=== PATIENT | male | born 1950 | race Caucasian/White ===

== ENCOUNTER 2017-04-20 15:33 | Observation (INO) | payer OTHER, MEDICARE ==
--- NOTE | ~2017-04-20 | HEMODYNAMI ---
PATIENT:MIGUEL HUBBARD MEDICAL RECORD: [id number] : 46 LOCATION:[place] [address] ADMISSION DATE: 04/20/17 Generatedon:04/21/201712:26 Patient name: MIGUEL HUBBARD Patient #: [id number] SSN: : 1950 Date of study: 04/21/2017 Page: Of Hemodynamic Procedure Report Patient Data Patient Demographics Procedure consent was obtained First Name: MIGUEL Gender: Male Last Name: HAYDEE : 1950 [facility] Initial: F Age: 67 year(s) Patient #: [id number] Race: Unknown Additional ID: [id number] Contact details Address: [address] State: [place] City: [place] Zip code: [address] Past Medical History Allergies: No known allergies Admission Admission Data Admission Date: 04/20/2017 Admission Time: 18:11 Room #: [facility]6 Weight (lbs.): 212.24 Weight (kg.): 96.27 Medications upon Admission Medications Dosage Times Administered Last Remarks per Delivery Day Date and Time Clopidogrel 600 mg Yes 04/21/2017 9:18 Procedure Procedure Types Cath Procedure Diagnostic Procedure LHC [facility] w/Coronaries FFR/IVUS Intra-Coronary IVUS Initial Intra-Coronary IVUS Additional PCI Procedure Coronary Stent Coronary Stent Initial x2 Miscellaneous Procedures Moderate Sedation up to 30 minutes Procedure Description Procedure Date Procedure Date: 04/21/2017 Procedure Start Time: 12:07 Procedure End Time: 12:25 Procedure Staff Name Function Octavio Fisher MD Performing Physician Juani Stringer RT Monitor Caro Ayala RT Scrub Harley Steven RN Nurse Procedure Data Cath Procedure Fluoroscopy Diagnostic fluoroscopy Total fluoroscopy Time: 5.3 time: 5.3 min min Diagnostic fluoroscopy Total fluoroscopy dose: 915 dose: 915 mGy mGy Contrast Material Contrast Material Type Amount (ml) Isovue 300 107 Entry Location Entry Primary Successful Side Size Upsize Upsize Entry Closure Succes sful Closure Location (Fr) 1 (Fr) 2 (Fr) Remarks Device Remarks Femoral Right 5 Fr 6 Fr Exoseal artery Short Estimated blood loss: 10 ml Diagnostic catheters Device Type Used For End Catheter Placement MULTIPACK Pigtail 5 Fr LV Angiography catheter MULTIPACK JL 4.0 5Fr Left Coronary catheter Angiography MULTIPACK 3DRC 5Fr Right Coronary catheter Angiography Procedure Complications No complications Procedure Medications Medication Administration Route Dosage 0.9% NaCl I.V. 100 ml/hr Oxygen NC 2 l/min Heparin Flush Bag added to field 2 bags (1000units/500ml NS) Lidocaine 2% added to field 20 Versed I.V. 2 mg Fentanyl I.V. 50 mcg Fentanyl I.V. 50 mcg Heparin Bolus I.V. 4000 units Hemodynamics Rest Heart Rate: 57 (bpm) Snapshots Pre Cath Intra NCS Post Cath Vital Signs Time Heart Resp SPO2 etCO2 NIBP (mmHg) Rhythm Pain Sedation Rate (ipm) (%) (mmHg) Status Level (bpm) 11:54:20 61 14 99 31 151/88(133) NSR 0 (11) 10(A) , No pain 11:59:02 57 15 95 0 129/79(99) NSR 0 (11) 10(A) , No pain 12:03:47 56 16 96 23.4 131/75(111) NSR 0 (11) 10(A) , No pain 12:08:30 60 17 96 37.1 129/74(97) NSR 0 (11) 10(A) , No pain 12:13:12 56 16 95 0 112/70(90) NSR 0 (11) 9(A) , No pain 12:17:53 58 14 93 30.2 117/70(90) NSR 0 (11) 9(A) , No pain 12:22:36 54 14 96 37 114/65(86) NSR 0 (11) 9(A) , No pain Medications Time Medication Route Dose Verified Delivered Reason Notes Effectiveness by by 11:53:41 0.9% NaCl I.V. 100 Harley Harley Per physician ml/hr Maurizio Steven RN RN 11:53:55 Oxygen NC 2 Harley Harley Per physician l/min Maurizio Steven RN RN 11:54:08 Heparin Flush added 2 Harley Harley used for Bag to bags Maurizio Steven procedure (1000units/500ml field RN RN NS) 11:54:25 Lidocaine 2% added 20ml Harley Harely for local to vial Maurizio Steven anesthetic field RN RN 12:05:27 Versed I.V. 2 mg Harley Harley for sedation Maurizio Steven RN RN 12:06:02 Fentanyl I.V. 50 Harley Harley for sedation mcg Maurizio Steven RN RN 12:07:20 Fentanyl I.V. 50 Harley Harley for sedation mcg Maurizio Steven RN RN 12:13:20 Heparin Bolus I.V. 4000 Harley Harley for units Maurizio Steven anticoagulation RN glass blowing instructor Log Time Note 11:28:04 Time tracking: Regular hours 11:28:08 Plan of Care:Hemodynamics will remain stable., Cardiac rhythm will remain stable., Comfort level will be maintained., Respiratory function will remain adequate., Patient/ family verbilizes understanding of procedure., Procedure tolerated without complication., Recovers from procedure without complications.. 11:31:05 Patient Weight : 212.24 lbs 11:46:01 Patient received from Med II to CCL 1 Alert and oriented. Tansferred to table in Supine position. 11:46:03 Warm blankets applied, and steven hugger turned on for patient comfort. 11:46:03 Correct patient and procedure confirmed by team. 11:46:04 Signed procedure consent form obtained from patient. 11:46:06 ECG and BP/O2 sat monitors applied to patient. 11:53:17 Vital chart was started 11:53:26 Rhythm: sinus bradycardia 11:53:27 Full Disclosure recording started 11:53:35 H&P Date Dictated: 04/21/2017 Within 30 days and on chart.. 11:53:37 Pre-procedure instructions explained to patient. 11:53:37 Pre-op teaching completed and patient verbalized understanding. 11:53:38 Family in waiting room. 11:53:40 Patient NPO since Midnight. 11:53:41 0.9% NaCl 100 ml/hr I.V. was administered by Harley Steven RN; Per physician; 11:53:45 Patient allergic to No known allergies 11:53:47 Is the patient allergic to Iodine/contrast media? No. 11:53:49 Is patient on blood thinner?Yes 11:53:52 ACC The patient was administered the following blood thiners within the last 24 hours: ACCPlavix 11:53:53 Patient diabetic? Yes. 11:53:55 Oxygen 2 l/min NC was administered by Harley Steven RN; Per physician; 11:53:55 If diabetic: On Metformin? No 11:53:58 Previous problem with sedation/anesthesia? No ? 11:53:59 Snore? Yes 11:54:00 Sleep apnea? Yes 11:54:01 Deviated septum? No 11:54:02 Opens mouth fully? Yes 11:54:02 Sticks out tongue? Yes 11:54:04 Airway obstruction? No ? 11:54:06 Dentures? No ? 11:54:08 Heparin Flush Bag (1000units/500ml NS) 2 bags added to field was administered by Harley Steven RN; used for procedure; 11:54:08 Pre procedure: right dorsailis pedis pulse 2+ Normal; easily identifiable; not easily obliterated 11:54:10 Modified Thierry's test Ulnar > 7 seconds. 11:54:12 Patient pain scale 0/10 ?. 11:54:16 IV patent on arrival in right forearm with 0.9% NaCl at [facility]. 11:54:18 Lab results completed and on chart. 11:54:21 Right groin area was prepped with chlora-prep and draped in sterile fashion 11:54:22 Alarms reviewed by R. N. 11:54:23 Sharps counted by scrub and verified by R.N. 11:54:25 Lidocaine 2% 20ml vial added to field was administered by Harley Steven RN; for local anesthetic; 11:54:25 Use device set Femoral Dx 11:54:26 ACIST Syringe (29758) opened to sterile field. 11:54:26 Bag Decanter (2002S) opened to sterile field. 11:54:27 Medline Cath Pack ([id number]) opened to sterile field. 11:54:27 SHEATH 5FR Jackson (EKA053) opened to sterile field. 11:54:28 DIAGNOSTIC WIRE .035 260cm J wire (177959) opened to sterile field. 11:54:29 ACIST Hand Control (01390) opened to sterile field. 11:54:29 ACIST Manifold (32052) opened to sterile field. 11:54:30 DIAGNOSTIC Multipack 5Fr catheter set (LT4212) opened to sterile field. 11:54:31 Tegaderm 4 x 4 (1626W) opened to sterile field. 11:54:31 PERCUTANEOUS ENTRY 19GA needle opened to sterile field. 11:56:05 Baseline sample Acquired. 11:56:41 Physician paged 11:58:38 Zero performed for pressure channel P1 12:04:48 Final Timeout: patient, procedure, and site verified with staff and physician. All members of the team are in agreement. 12:04:50 Right groin site verified by team. 12:04:53 Physical assessment completed. ASA score P 2 - A patient with mild systemic disease as per Octavio Fisher MD. 12:04:56 Sedation plan: IV Moderate Sedation Medication:Versed, Fentanyl 12:05:27 Versed 2 mg I.V. was administered by Harley Steven RN; for sedation; 12:06:02 Fentanyl 50 mcg I.V. was administered by Harley Steven RN; for sedation; 12:07:04 Procedure started. 12:07:07 Local anesthetic to right femoral artery with Lidocaine 2% by Octavio Fisher MD.INITIAL ACCESS ONLY 12:07:20 Fentanyl 50 mcg I.V. was administered by Harley Steven RN; for sedation; 12:07:33 A 5 Fr sheath was inserted into the Right Femoral artery 12:08:07 A MULTIPACK Pigtail 5 Fr catheter was advanced over the wire and used for LV Angiography. 12:08:36 LV gram done using ARGUETA 12:08:39 Injector settings: Ml/sec: 10, Volume: 20, 12:08:45 EF : 50 % 12:08:47 Catheter removed. 12:08:58 A MULTIPACK JL 4.0 5Fr catheter was advanced over the wire and used for Left Coronary Angiography. 12:10:15 Catheter removed. 12:10:29 A MULTIPACK 3DRC 5Fr catheter was advanced over the wire and used for Right Coronary Angiography. 12:10:38 Use device set [facility] PCI 12:10:42 INFLATOR Merit BasixCompak (FN9056) opened to sterile field. 12:10:44 SHEATH 6FR Jackson (BWU947) opened to sterile field. 12:10:50 CHOICE PT Extra Support 182cm wire ([id number]) opened to sterile field. 12:11:26 Ironside [place] IVUS Catheter (33781B) opened to sterile field. 12:12:29 GUIDE 6FR XB 4.0 catheter ([id number]) opened to sterile field. 12:12:39 Sheath upsized to a 6 Fr Short. 12:12:52 6 Fr XB 4.0 guide catheter was inserted over the wire 12:12:59 Choice PT ES to circ wire advanced. 12:13:20 Heparin Bolus 4000 units I.V. was administered by Harley Steven RN; for anticoagulation; 12:14:05 IVUS catheter advanced over wire. 12:14:08 IVUS pass to Circ lesion performed. 12:14:57 IVUS catheter removed over wire. 12:15:04 Wire redirected to LAD. 12:15:07 IVUS catheter advanced over wire. 12:15:17 IVUS pass to LAD lesion performed. 12:15:36 IVUS catheter removed over wire. 12:18:25 Inflation Number: 1 A INTEGRITY RX 3.5 x 18 stent ([id number]) was prepped and advanced across the Prox LAD. The stent was deployed at 11 ERIN for 0:02 (min:sec). 12:18:50 Stent catheter was removed intact over wire. 12:18:53 Wire redirected to Circ. 12:20:58 Inflation number: 1 A INTEGRITY RX 3.5 x 15 stent ([id number]) was prepped and advanced across the Mid CX, then inflated to 11 ERIN for 0:05 (min:sec). 12:21:14 Stent catheter was removed intact over wire. 12:21:15 Wire removed. 12:21:15 Guide catheter removed. 12:21:29 Sheath removed intact; hemostasis achieved with Exoseal to the Right Femoral artery. 12:21:32 EXOSEAL 6Fr (EX600) opened to sterile field. 12:21:37 Procedure ended.(Physican Out) 12:21:49 Fluoroscopy time 05.30 minutes. 12::52 Fluoroscopy dose: 915 mGy 12:21:52 Flurop Dose total: 915 12:23:06 Contrast amount:Isovue 300 107ml. 12:23:08 Sharps counted by scrub and verified by R.N. 12:23:09 Insertion/operative site no bleeding no hematoma. 12:23:12 Post-op/insertion site Right Femoral artery dressed using a 4 x 4 and Tegaderm. 12:23:16 Post right femoral artery:stable, soft, clean and dry 12:23:19 Post Procedure Pulses reassessed and unchanged 12:23:22 Post-procedure physical assessment completed. ASA score P 2 - A patient with mild systemic disease as per Octavio Fisher MD. 12:23:24 Post procedure rhythm: unchanged. 12:23:26 Estimated blood loss: 10 ml 12:23:27 Post procedure instruction explained to patient.Patient verbalizes understanding. 12:23:28 Patient needs reinforcement of post procedure teaching. 12:24:05 Procedure type changed to Cath procedure, Diagnostic procedure, LHC, LHC w/Coronaries, FFR/IVUS, Intra-Coronary IVUS Initial, Intra-Coronary IVUS Additional, PCI procedure, Coronary Stent, Coronary Stent Initial x2, Miscellaneous Procedures, Moderate Sedation up to 30 minutes 12:24:11 Procedure Complication : No complications 12:24:15 See physician's report for complete and final results. 12:25:24 Procedure and supply charges have been captured, reviewed, submitted and are correct. 12:25:29 Vital chart was stopped 12:25:31 Report given to PCU. 12:25:33 Patient transfered to PCU with Bed. 12:25:45 Procedure ended. 12:25:45 Full Disclosure recording stopped 12:25:48 End room use (Document Last) Intervention Summary Intervention Notes Time ActionType Lesion and Equipment Action# Pressure Duration Attributes Used 12:18:25 Place stent Prox LAD INTEGRITY RX 1 11 00:02 3.5 x 18 stent ([id number]) 12:20:58 Inflate Mid CX INTEGRITY RX 1 11 00:05 balloon 3.5 x 15 stent ([id number]) Device Usage Item Name Manufacture Quantity Catalog Number Hospital Part Current Mini mal Lot# / Charge Number Stock Stock Serial# Code ACIST Acist 1 90624 976960 530437 662118 20 Syringe Medical (14220) Systems Inc Bag Decanter Microtek 1 365677 04599 917872 5 () Medical Inc. Medline Cath Cardinal 1 [id number] 930618 35047 030055 5 Pack Health ([id number]) SHEATH 5FR Terumo 1 UHS655 250286 640857 288810 40 Jackson (OKV883) DIAGNOSTIC St Alcides 1 976210 405247 009022 142656 30 WIRE .035 260cm J wire (318307) ACIST Hand Acist 1 66049 930077 276450 204749 5 Control Medical (73729) Systems Inc ACIST Acist 1 27891 716500 920971 315481 5 Manifold Medical (53549) Systems Inc DIAGNOSTIC Cardinal 1 CF4266 835229 21441 945314 30 Multipack Spotster 5Fr catheter set (UC5452) Tegaderm 4 x 3M 1 1626W 538593 670265 649912 5 4 (1626W) PERCUTANEOUS Cook Medical 1 I33395 343207 036115 5 ENTRY 19GA needle MULTIPACK Cardinal 1 326488 5 Pigtail 5 Fr Health catheter MULTIPACK JL Cardinal 1 933508 5 4.0 5Fr Health catheter MULTIPACK Cardinal 1 161728 5 3DRC 5Fr Health catheter INFLATOR Mlog 1 DN5314 197176 723944 847709 15 Signal Sciences BasixCompak (KA8143) SHEATH 6FR Terumo 1 SNH401 996606 467358 680150 40 Jackson (QVJ397) CHOICE PT [place] 1 [id number] 712393 367987 460747 5 Extra Scientific Support 182cm wire ([id number]) Ironside Ironside 1 89160P 376348 937654 018687 8 [place] Eag[place] IVUS Catheter (63220B) GUIDE 6FR XB Cardinal 1 [id number] 910917 408912 830558 2 4.0 Allylix (16987542) INTEGRITY RX Medtronic 1 [id number] 901028 246173 178949 5 [id number] 3.5 x 18 stent ([id number]) INTEGRITY RX Medtronic 1 [id number] 718306 171646 309478 5 [id number] 3.5 x 15 stent ([id number]) EXOSEAL 6Fr Cardinal 1 EX600 398522 719743 728039 10 (EX600) Health Signature Audit [place] Stage Time Signature Unsigned Intra-Procedure 04/21/2017 Juani 12:25:58 PM Counts RT(R) Signatures Monitor : Juani Signature : Counts RT Date : Time : [place] [address] [place] [address]
[2017-04-20 16:43] LABS: BASOPHILS 0.8 % (0-2); EOSINOPHILS 1.6 % (0-7); HEMOGLOBIN 14.6 g/dL (13.5-17.5); IMMATURE GRANULOCYTES 0.4 % (0-5); LYMPHOCYTES 24.9 % (15-50); MCH 31.4 pg (26.0-34.0); MCV 92.5 fL (80.0-100.0); MEAN PLATELET VOLUME 9.8 fL (7.4-10.4); MONOCYTES 11.5 % (2-11); NEUTROPHILS 60.8 % (40-80); PLATELET COUNT 332 10x3/uL (130-400); RBC 4.65 10x6/uL (4.20-6.10); RDW 12.1 % (11.5-14.5); WBC 8.4 10x3/uL (4.8-10.8)
[2017-04-20 16:57] LABS: INR 0.95 (0.85-1.17); PROTIME 12.3 SECONDS (11.6-15.0)
[2017-04-20 17:06] LABS: ALBUMIN 3.5 g/dL (3.4-5.0); ANION GAP 11.2 mmol/L (8-16); BILIRUBIN - TOTAL 0.39 mg/dL (0.2-1.3); CALCIUM 8.9 mg/dL (8.5-10.1); CARBON DIOXIDE 26.7 mmol/L (21.0-32.0); CREATININE - SERUM 1.1 mg/dL (0.6-1.3); POTASSIUM - SERUM 3.9 mmol/L (3.5-5.1)
[2017-04-20 17:16] LABS: MAGNESIUM - SERUM 2.2 mg/dL (1.8-2.4); THYROID STIMULATING HORMONE 1.16 uIU/mL (0.36-3.74)
--- NOTE | 2017-04-20 19:04 | NUR ---
REPORT RECEIVED FROM LEMUEL BEARDEN.
--- NOTE | 2017-04-20 19:56 | NUR ---
ARRIVED TO FLOOR VIA WHEELCHAIR, ACCOMPANIED BY HOSPITAL STAFF. ORIENTED TO UNIT, CALL LIGHT IN REACH. WORK ORDER PLACED FOR HEATER. PLACED ON TELEMETRY. WILL CONTINUE TO MONITOR. SEE NURSE ASSESSMENT.
[2017-04-20] MEDS ORDERED: ALEVE220 MG PO (21:23)
--- NOTE | 2017-04-20 21:23 | NUR ---
ALEJANDRINA JUNG PAGED FOR MEDICATIONS, AWAITING CALL BACK.
[2017-04-21 00:21] VITALS: BP 111/69
[2017-04-21 04:58] VITALS: BP 108/66
--- NOTE | 2017-04-21 05:01 | NUR ---
DIRECTOR FINANCIAL ANALYSIS AT BEDSIDE TO OBTAIN VITALS, CALL LIGHT IN REACH. WILL CONTINUE WITH PLAN OF CARE.
--- NOTE | 2017-04-21 06:10 | NUR ---
NO CHANGES FROM PREVIOUS ASSESSMENT, CALL LIGHT IN REACH.
[2017-04-21 08:40] VITALS: BP 110/79
--- NOTE | 2017-04-21 10:46 | NUR ---
PT PREPPED FOR HEART CATH. AM MEDS GIVEN WITH SIP OF H2O. MONITOR SHOWS SR WITH RATE OF 67.
--- NOTE | 2017-04-21 13:16 | NUR ---
BACK FROM [facility]. R GROIN SIT CLEAN, NO EDEMA NOR BLEEDING. WILL CONTINUE TO MONITOR.
[2017-04-21] MEDS ORDERED: ASPIRIN81 MG PO (13:26)
[2017-04-21] MEDS ORDERED: PLAVIX75 MG PO (13:28)
[2017-04-21] MEDS ORDERED: BETAPACE 80 MG80 MG PO (13:29)
--- NOTE | 2017-04-21 14:15 | NUR ---
VS WNL. RIGHT GROIN STABLE. WILL CONT. PLAN OF CARE.
--- NOTE | 2017-04-21 16:13 | NUR ---
Patient Name: MIGUEL HUBBARD Admission Status: ER Accout number: [id number] Admission Date: 04-20-2017 : 1950 Admission Diagnosis: Attending: SARITA EASTON Current LOS: 1 Anticipated DC Date: 04-21-2017 Planned Disposition: Home Primary Insurance: [employer] Discharge Planning Comments: * Is the patient Alert and Oriented? Yes 0 * How many steps to enter\exit or inside your home? NONE 0 * PCP DR. FUENTES, [facility] 0 * Pharmacy [facility] ADMINSTRATION MAIL ORDER [facility] OR [facility] IN [place] 0 * Preadmission Environment Home with Family 0 * ADLs Independent 0 * Equipment Cane CPAP 0 * Other Equipment [facility] ADMIN - MEDICAL EQUIPMENT PROVIDER 0 * List name and contact numbers for known caregivers / representatives who currently or will assist patient after discharge: HILARIO HUBBARD, SPOUSE, 0 * Community resources currently utilized None 0 * Please name any agencies selected above. NONE 0 * Additional services required to return to the preadmission environment? No 0 * Can the patient safely return to the preadmission environment? Yes 0 * Has this patient been hospitalized within the prior 30 days at any hospital? No 0 CM MET WITH PT AND SPOUSE IN ROOM TO DISCUSS DISCHARGE PLANNING AND NEEDS. PT REPORTS LIVING AT HOME INDEPENDENTLY WITH SPOUSE. [facility] PT HAS NO OUTSIDE SERVICES ASSISTING IN THE HOME. CM DISCUSSED AVAILABILITY OF HOME HEALTH, REHAB SERVICES AND MEDICAL EQUIPMENT. PT DENIES DISCHARGE NEEDS, REPORTS HIS WILL PICK HER UP FOR DISCHARGE HOME. PT STATES THAT THE EMERGENCY ROOM STAFF [facility]ED [facility] FOR [facility] AND NO BED WAS AVAILABLE. PT STILL WILLING FOR TRANSFER IF BED IS AVAILABLE. PT REPORTS HE IS SUPPOSED TO DISCHARGE HOME TODAY. CM RECEIVED DISCHARGE ORDER, CALLED [facility], SPOKE TO [facility] AT [phone], NOTIFIED OF PT'S DISCHARGE HOME AND REMOVED PT FROM TRANSFER LIST. Electroplating Technician: Antonio Reyes
[2017-04-21 16:30] VITALS: BP 105/61
--- NOTE | 2017-04-21 17:31 | NUR ---
BED REST UP. GROIN STABLE. IV AND TELEMETRY DCD. DC PLANS GIVEN. UNDERSTANDING VOICED. ESCORTED TO CAR BY W/C.
--- NOTE | 2017-04-26 12:15 | CN ---
PATIENT NAME:MIGUEL HUBBARD MEDICAL RECORD: [id number] : 46 LOCATION:[facility] D.2116 ADMIT DATE: 04/20/17 ACCOUNT: [id number] CONSULTING PHYSICIAN: TYRA JIMENEZ MD REFERRING PHYSICIAN: SARITA EASTON MD DATE OF CONSULTATION: 04/21/2017 DIAGNOSES: 1. Paroxysmal atrial fibrillation. 2. Angina. HISTORY: This is a gentleman who, for the past few year, has been having episodes of chest pain associated with tachycardia and palpitations. He had his worst episode yesterday, lasted for hours. He presented to the hospital, was in new-onset atrial fibrillation. He has since converted to sinus rhythm. He was having classic anginal chest discomfort with this. He has nonspecific ST-T abnormalities with the tachycardia. REVIEW OF SYSTEMS: The patient reports easy bruising but reports no swollen glands. The patient reports no fever, no night sweats, no significant weight gain, no significant weight loss. No significant exercise tolerance. The patient reports no dry eyes, no irritation, no vision change. Patient reports no difficulty hearing and no ear pain. Patient reports no frequent nose bleeds or nose and sinus problems. Patient reports on arm pain on exertion. No shortness of breath while lying down. No history of heart murmur. Patient reports no cough, no wheezing or coughing up blood. Patient reports no abdominal pain, no vomiting. Normal appetite. No diarrhea and not vomiting blood. No nausea and no constipation. Patient reports no incontinence. No difficulty urinating. No hematuria. No increased frequency. Patient reports no muscle aches. No weakness, no arthralgias, no back pain. No swelling of the extremities. Patient reports no abnormal mole, no jaundice, no rashes. Reports no loss of consciousness. No weakness and no numbness. No seizures, dizziness, or headaches. The patient reports no depression, no sleep disturbance, feeling safe in a relationship and no alcohol abuse. Patient reports on fatigue. Reports no runny nose or sinus pressure. No itching, no hives, and no frequent sneezing. PHYSICAL EXAMINATION: GENERAL APPEARANCE: Well-nourished, well-developed, appears stated age. Level of distress, comfortable. PSYCHIATRIC: Mental status, alert, normal affect. Orientation, oriented to time, place and person. EYES: Lids and conjunctiva, noninjected. No discharge, no pallor. ENT: Lips, teeth, gums, normal dentition. Oropharynx, no cyanosis, no pallor. NECK: Carotid arteries, bilateral normal upstroke, no bruits, no thrills. JUGULAR VEINS: No jugular venous pressure or distention. CERVICAL LYMPH NODES: Nontender, nonenlarged. THYROID: Not enlarged. Nontender. No nodules. LUNGS: Respiratory effort, unlabored. CHEST: Normal curvature. No thoracic deformity. No chest wall tenderness. Percussion, resonant. Auscultation, clear. No wheezes, no rales, no rhonchi. CARDIOVASCULAR: Precordial exam, nondisplaced. No heaves or pericardial thrills. Rate and rhythm, regular. Heart sounds, normal S1, normal S2. No S3, no gallop, no rub. Systolic murmur, not heard. Diastolic murmur, not heard. EXTREMITIES: No cyanosis, no edema. Peripheral pulses, full and equal in all CONSULT REPORT [id number] MIGUEL HUBBARD extremities, except as noted. No bruits appreciated. ABDOMEN: Soft, nondistended. Normal aorta. No bruit. Nontender. No masses. Liver, nontender, no hepatomegaly. Spleen, nontender, no splenomegaly. MUSCULOSKELETAL: No joint tenderness. No joint swelling. No erythema. NEUROLOGICAL: Normal gait, normal strength, normal tone. SKIN: Warm and dry. OVERALL IMPRESSION: Paroxysmal atrial fibrillation, most likely secondary to ischemic heart disease. We will proceed with coronary angiography. Start him on sotalol as well. TRANSINT:[id number] Voice Confirmation ID: [id number] DOCUMENT ID: [id number] TYRA JIMENEZ MD at 1215 CC: [id number] DICTATION DATE: 04/21/17 0900 COREROOM FOUNDRY LABORER: 04/21/17 1056 DIS IN 04/21/17 [facility] [address] [place] [address]
--- NOTE | 2017-04-26 12:15 | DS ---
PATIENT:MIGUEL HUBBARD :[birth year] MEDICAL RECORD: [id number] DISCHARGE SUMMARY ADMISSION DATE: 04/20/17 DISCHARGE DATE: 04/21/17 DISCHARGE DIAGNOSES: 1. Paroxysmal atrial fibrillation. 2. Angina. 3. Coronary artery disease. 4. Percutaneous transluminal coronary angioplasty stent of left anterior descending and circumflex this admission. HOSPITAL COURSE: This is a gentleman who presents with new-onset atrial fibrillation and angina, found to have 2-vessel coronary disease of the LAD and circumflex, underwent successful PTCA stent of both territories, was placed on sotalol 40 mg b.i.d., maintained in sinus rhythm. Will follow up with [facility] in 1 month. TRANSINT:[id number] Voice Confirmation ID: [id number] DOCUMENT ID: [id number] TYRA JIMENEZ MD at 1215 CC: [id number] DICTATION DATE: 04/21/17 1226 LEADERSHIP DEVELOPMENT INSTRUCTOR: 04/21/17 1358 DIS IN 04/21/17 [place] [address] [place] [address]
--- NOTE | 2017-04-26 12:15 | EC ---
PATIENT:MIGUEL HUBBARD DATE OF SERVICE: 04/20/17 SEX: M MEDICAL RECORD: [id number] DATE OF : [birth year] LOCATION:D.M2 D.211 AGE OF PATIENT: 67 ADMISSION DATE: 04/20/17 REFERRING PHYSICIAN: INTERPRETING PHYSICIAN: TYRA FISHER MD ECHOCARDIOGRAM REPORT ECHO CHARGES 4 ECHO COMPLETE CLINICAL DIAGNOSIS: AFIB/CHF HX OF HTN ECHOCARDIOGRAPHIC MEASUREMENTS (adult normal given) AC root (d.<3.7cm) 4.6 cm LV Septum d (<1.2 cm> 1.7 cm Valve Excursion 2.0 cm LV Septum (systole) 1.8 cm Left Atria (s.<4.0cm> 3.8 cm LVPW d(<1.2cm) 1.5 cm RV (d.<2.3cm) 4.6 cm LVPW (sytole) 1.9 cm LV diastole(<5.6CM) 5.1 cm MV E-F(>70mm/sec) cm LV systole 3.3 cm LVOT Diameter 1.7 cm MV exc.(>10mm) 1.9 cm Est.ejection fraction (50-75%) % Pericardial Effusion N DOPPLER: LVIT cm/sec A 60.0 cm/sec E 37.0 cm/sec LA cm/sec RVSP mmHg LVOT 66 cm/sec AOP1/2T m/s Asc. Ao 87 cm/sec RVOT 66 cm/sec RA cm/sec PA 84 cm/sec AV Gradient Peak 3.05 mmHg AV Mean 1.47 mmHg AV Area 1.7 cm MV Gradient Peak 2.42 mmHg MV Mean 0.71 mmHg MV Area cm COMMENTS: Antiquer: Ekaterina ELKINS Word Processing Specialist: 1 Dr. Fisher TAPE# PACS DATE OF SERVICE: 04/21/2017 Echocardiogram FINDINGS: 1. Left ventricular chamber size is within normal limits. Left ventricular systolic function is normal. Overall ejection fraction estimated at 55%. 2. Left atrium is within normal limits at 3.8 cm. Right atrium and right ventricular chamber sizes are mildly dilated. 3. Valvular structures have normal structure and motion. ECHOCARDIOGRAM REPORT [id number] MIGUEL HUBBARD 4. Doppler interrogation reveals mild mitral regurgitation. No other valvular insufficiency or stenosis. Pulmonary systolic pressure is normal estimated at 21 mmHg. 5. No evidence of pericardial effusion or left ventricular thrombus. TRANSINT:[id number] Voice Confirmation ID: [id number] DOCUMENT ID: [id number] TYRA FISHER MD at 1215 CC: [id number] DICTATION DATE: 04/21/17 1253 BENDER MACHINE OPERATOR: 04/21/17 1303 DIS IN 04/21/17 [place] [id number] [place] [id number]
--- NOTE | 2017-04-26 12:15 | OP ---
PATIENT NAME: MIGUEL HUBBARD MEDICAL RECORD: [id number] :46 LOCATION:D.M2 D.2116 ADMISSION DATE:04/20/17 SURGEON: TYRA JIMENEZ MD DATE OF OPERATION: 04/21/2017 PROCEDURES: 1. PTCA stent to LAD. 2. PTCA stent to left circumflex. 3. Intravascular ultrasound of the LAD. 4. Intravascular ultrasound of left circumflex. 5. Left heart catheterization. 6. Selective coronary angiography. 7. Left ventriculogram. INDICATION: Angina and coronary artery disease. PROCEDURE IN DETAIL: After informed consent was obtained and after detailed explanation of risks, benefits as well as alternative therapies, the patient elected to proceed with angiogram and angioplasty. The right femoral area was prepped and draped in normal sterile fashion. The right femoral artery was cannulated via modified Seldinger technique with placement of 6-Spanish sheath. All catheters were exchanged through this sheath. FINDINGS: The left ventriculogram was performed in standard 30-degree ARGUETA view, reveals good cardiac wall motion throughout all segments. Overall ejection fraction 55%. SELECTIVE CORONARY ANGIOGRAPHY: 1. Left main showed no significant angiographic disease. 2. Left anterior descending has 80% stenosis proximally confirmed by intravascular ultrasound. 3. Left circumflex has 80% stenosis proximally confirmed by intravascular ultrasound. 4. Right coronary has moderate irregularities, but no flow-limiting stenosis. PTCA STENT OF THE LAD AND CIRCUMFLEX: The LAD was addressed with a 3.5 x 18, the circumflex with a 3.5 x 15, both Integrity stents. Result was 0% residual stenosis. OVERALL IMPRESSION: Successful percutaneous transluminal coronary angioplasty stent of the left anterior descending and circumflex, both going from 80% initial stenosis to 0% residual stenosis. TRANSINT:[id number] Voice Confirmation ID: [id number] DOCUMENT ID: [id number] TYRA JIMENEZ MD at 1217 CC: [id number] DICTATION DATE: 04/21/17 1227 PLASTICS ENGINEER: 04/21/17 1256 DIS IN 04/21/17 [facility] [address] [place] [id number]
== END 2017-04-21 17:32 | disposition home or self-care (01) ==
LOC: D.ER 15:33 → D.M2 18:11 → OBSVTIME 18:11 → D.M2 18:11
PROVIDERS: Emergency Medicine; ADMIT Family Medicine
DX: I25.119 Atherosclerotic heart disease of native coronary artery with unspecified angina pectoris (principal); I10 Essential (primary) hypertension; I48.0 Paroxysmal atrial fibrillation

== ENCOUNTER 2019-02-06 11:48 | Outpatient (CLI) | payer OTHER ==
[~2019-02-06] VITALS: Ht 180.3 cm; Wt 102.3 kg
--- NOTE | ~2019-02-06 | HEMODYNAMI ---
PATIENT:MIGUEL HUBBARD MEDICAL RECORD: [id number] : 46 LOCATION:D.CAT ADMISSION DATE: 02/06/19 Generatedon:02/06/201915:54 Patient name: MIGUEL HUBBARD Patient #: [id number] : 1950 Date of study: 02/06/2019 Page: Of Hemodynamic Procedure Report Patient Data Patient Demographics Procedure consent was obtained First Name: MIGUEL Gender: Male Last Name: HAYDEE : 1950 Middle Initial: F Age: 69 year(s) Patient #: [id number] Race: SSN: [id number] Additional ID: [id number] Contact details Address: [facility] [address] State: [place] City: [place] Zip code: [address] Past Medical History Allergies: No known allergies Admission Admission Data Admission Date: 02/06/2019 Admission Time: 11:48 Admit Source: Emergency Insurance Payor: [facility] #: [id number] Height (in.): 70.87 BSA: 2.2 (m2) Height (cm.): 180 BMI: 31.17 (kg/m2) Weight (lbs.): 222.67 Weight (kg.): 101 Lab Results Lab Result Date: 02/06/2019 Lab Result Time: 12:10 Biochemistry Name Units Result Min Max BUN mg/dl 30 --(----)-* 7 18 Creatinine mg/dl 1.2 --(---*)-- 0.6 1.3 CBC Name Units Result Min Max Hematocrit % 39.9 -*(----)-- 42 54 Hemoglobin g/dl 13.9 --(*---)-- 13.5 17.5 Procedure Procedure Types Cath Procedure Diagnostic Procedure LHC LH w/Coronaries Sedation Charges Moderate Sedation up to 15 minutes PCI Procedure Coronary Stent Coronary Stent Initial Procedure Description Procedure Date Procedure Date: 02/06/2019 Procedure Start Time: 15:27 Procedure End Time: 15:51 Procedure Staff Name Function Octavio Fisher MD Performing Physician Ashutosh Keller RT Monitor Daniel Panda RT Grease Monkey Ramonita Pelletier RT Scrub Willie Baez RN Nurse Procedure Data Cath Procedure Fluoroscopy Diagnostic fluoroscopy Total fluoroscopy Time: 4.5 time: 4.5 min min Diagnostic fluoroscopy Total fluoroscopy dose: 915 dose: 915 mGy mGy Contrast Material Contrast Material Type Amount (ml) Isovue 300 115 Entry Location Entry Primary Successful Side Size Upsize Upsize Entry Closure Succes sful Closure Location (Fr) 1 (Fr) 2 (Fr) Remarks Device Remarks Femoral Right 5 Fr 6 Fr Exoseal artery Short Estimated blood loss: 10 ml Diagnostic catheters Device Type Used For End Catheter Placement MULTIPACK Pigtail 5 Fr Procedure catheter MULTIPACK JL 4.0 5Fr Procedure catheter MULTIPACK 3DRC 5Fr Procedure catheter Procedure Complications No complications Procedure Medications Medication Administration Route Dosage Oxygen etCO2 Nasal cannula 2 l/min Lidocaine 2% added to field 20 Heparin Flush Bag added to field 2 bags (1000units/500ml NS) 0.9% NaCl I.V. 100 ml/hr Versed I.V. 1 mg Fentanyl I.V. 50 mcg Versed I.V. 1 mg Fentanyl I.V. 50 mcg Heparin Bolus I.V. 4000 units Integrilin (Bolus I.V. 9 ml 2mg/ml) Plavix P.O. 600 mg Hemodynamics Rest BSA: 2.2 (m2) O2 Consumption: Estimated: 253.86 (ml/min) O2 Consumption indexed: Estimated:115.39 (ml/min/m) Heart Rate: 69 (bpm) Pressure Samples Time Site Value (mmHg) Purpose Heart Use Rate(bpm) 15:27 LV 108/10,26 Snapshot 69 Snapshots Pre Cath Intra NCS Post Cath Vital Signs Time Heart Resp SPO2 etCO2 NIBP (mmHg) Rhythm Pain Sedation Rate (ipm) (%) (mmHg) Status Level (bpm) 15:14:59 69 24 100 28.4 147/94(115) NSR 0 (11) 10(A) , No pain 15:19:21 70 19 94 0 133/83(104) NSR 0 (11) 10(A) , No pain 15:23:33 65 14 96 22.4 114/72(83) NSR 0 (11) 10(A) , No pain 15:27:47 67 12 95 0 121/76(91) NSR 0 (11) 9(A) , No pain 15:32:03 66 13 95 0 116/71(86) NSR 0 (11) 9(A) , No pain 15:36:17 64 13 96 0 111/64(93) NSR 0 (11) 9(A) , No pain 15:40:33 66 12 95 26.1 113/62(82) NSR 0 (11) 9(A) , No pain 15:44:45 64 19 96 37.4 107/70(82) NSR 0 (11) 10(A) , No pain 15:48:55 63 11 97 32.9 111/71(93) NSR 0 (11) 10(A) , No pain Medications Time Medication Route Dose Verified Delivered Reason Notes Effectiveness by by 15:17:22 Oxygen etCO2 2 Octavio Buffie used for Nasal l/min Natalia Baez RN procedure cannula 15:17:56 Lidocaine 2% added 20ml Octavio Buffie for local to vial Natalia Baez RN anesthetic field 15:18:02 Heparin Flush added 2 Octavio Buffie used for Bag to bags Natalia Baez RN procedure (1000units/500ml field NS) 15:18:10 0.9% NaCl I.V. 100 Octavio Buffie Per physician ml/hr Natalia Baez RN 15:19:17 Versed I.V. 1 mg Octavio Buffie for sedation Natalia Baez RN 15:19:23 Fentanyl I.V. 50 Octavio Buffie for sedation mcg Natalia Baez RN 15:24:14 Versed I.V. 1 mg Octavio Buffie for sedation Natalia Baez RN 15:24:18 Fentanyl I.V. 50 Octavio Buffie for sedation mcg Natalia Baez RN 15:35:23 Heparin Bolus I.V. 4000 Octavio Buffie for verif ied units Natalia Baez RN anticoagulation with dr fisher 15:37:16 Integrilin I.V. 9 ml Octavio Buffie for waste d 1 (Bolus 2mg/ml) Natalia Baez RN antiplatelet ml of therapy vial 15:45:31 Plavix P.O. 600 Octavio Buffie for mg Natalia Baez RN antiplatelet therapy Procedure Log Time Note 14:45:30 Daniel Panda RT(R) sent for patient. Start room use. 14:51:37 Informed consent obtained and on chart 14:52:48 Patient Weight : 222.67 lbs 14:52:51 Patient Height : 70.87 inches 14:52:53 Admit Source: Emergency department 14:52:59 Insurance Payor : [facility] 14:53:43 Lab Result : BUN 30 mg/dl 14:53:43 Lab Result : Hematocrit 39.9 % 14:53:43 Lab Result : Creatinine 1.2 mg/dl 14:53:43 Lab Result : Hemoglobin 13.9 g/dl 14:54:00 Diagnostic Cath Status : Urgent 14:54:22 ACC Patient presents with Unstable Angina CCS Anginal Class 4--Inability to carry out any physical activity w/o angina. Angina may occur at rest. 14:54:24 ACCPatient has been prescribed/administered the following anti-anginal medication within the last 2 weeks: Beta Alexandra 14:54:28 Procedure Status Urgent Heart Cath (IP). 14:54:37 Time tracking: Regular hours (M-F 7:00 - 5:00) 14:54:40 Plan of Care:Hemodynamics will remain stable., Cardiac rhythm will remain stable., Comfort level will be maintained., Respiratory function will remain adequate., Patient/ family verbilizes understanding of procedure., Procedure tolerated without complication., Recovers from procedure without complications.. 14:54:45 H&P Date Dictated: 02/06/2019 Within 30 days and on chart.. 15:13:39 Warm blankets applied, and steven hugger turned on for patient comfort. 15:13:39 Correct patient and procedure confirmed by team. 15:13:40 ECG and BP/O2 sat monitors applied to patient. 15:13:41 Vital chart was started 15:13:45 Rhythm: sinus rhythm 15:13:47 Full Disclosure recording started 15:13:48 Pre-procedure instructions explained to patient. 15:13:48 Pre-op teaching completed and patient verbalized understanding. 15:13:51 Family in waiting room. 15:13:53 Patient NPO since Midnight. 15:14:03 Patient allergic to No known allergies 15:14:07 Is the patient allergic to Iodine/contrast media? No. 15:14:09 Is patient on blood thinner?No 15:16:54 Patient diabetic? No. 15:16:57 Previous problem with sedation/anesthesia? No ? 15:16:58 Snore? Yes 15:16:58 Sleep apnea? Yes 15:16:59 Deviated septum? No 15:17:00 Opens mouth fully? Yes 15:17:00 Sticks out tongue? Yes 15:17:02 Airway obstruction? No ? 15:17:04 Dentures? No ? 15:17:06 Pre procedure: right dorsailis pedis pulse 2+ Normal; easily identifiable; not easily obliterated 15:17:08 Patient pain scale 0/10 ?. 15:17:13 IV patent on arrival in right antecubital with 0.9% NaCl at [facility]. 15:17:15 Lab results completed and on chart. 15:17:18 Right groin area was prepped with chlora-prep and draped in sterile fashion 15:17:19 Alarms reviewed by R. N. 15:17:19 Sharps counted by scrub and verified by R.N. 15:17:21 Use device set Femoral Dx 15:17:21 ACIST Syringe (55775) opened to sterile field. 15:17:22 Oxygen 2 l/min etCO2 Nasal cannula was administered by Willie Baez RN; used for procedure; 15:17:22 Bag Decanter (2002S) opened to sterile field. 15:17:22 Medline Cath Pack ([id number]) opened to sterile field. 15:17:23 ACIST Hand Control (21530) opened to sterile field. 15:17:23 ACIST Manifold (56676) opened to sterile field. 15:17:24 DIAGNOSTIC Multipack 5Fr catheter set (BR4635) opened to sterile field. 15:17:24 Tegaderm 4 x 4 (1626W) opened to sterile field. 15:17:25 SHEATH 5FR Carlton (ZQC296) opened to sterile field. 15:17:26 EMERALD Guide Wire (767-615) opened to sterile field. 15:17:32 Physician arrived 15:17:32 --------ALL STOP TIME OUT------ 15:17:32 Final Timeout: patient, procedure, and site verified with staff and physician. All members of the team are in agreement. 15:17:34 Right groin site verified by team. 15:17:36 Fire Safety Assessment: A--An alcohol-based skin anteseptic being used preoperatively., C--Open oxygen or nitrous oxide is being used., D--An ESU, laser, or fiber-optic light is being used. 15:17:39 Physical assessment completed. ASA score P 2 - A patient with mild systemic disease as per Octavio Fisher MD. 15:17:56 Lidocaine 2% 20ml vial added to field was administered by Willie Baez RN; for local anesthetic; 15:18:02 Heparin Flush Bag (1000units/500ml NS) 2 bags added to field was administered by Willie Baez RN; used for procedure; 15:18:10 0.9% NaCl 100 ml/hr I.V. was administered by Willie Baez RN; Per physician; 15:18:10 2) 60-89 Mildly reduced kidney function, and other findings (as for stage 1) point to kidney disease. 15:18:37 Maximum allowable contrast dose (3.7 X eGFR X 0.75)174 ml. 15:18:42 Sedation plan: IV Moderate Sedation Medication:Versed, Fentanyl 15:19:17 Versed 1 mg I.V. was administered by Willie Baez RN; for sedation; 15:19:23 Fentanyl 50 mcg I.V. was administered by Willie Baez RN; for sedation; 15:21:26 IV Extension Set opened to sterile field. 15:24:14 Versed 1 mg I.V. was administered by Willie Baez RN; for sedation; 15:24:18 Fentanyl 50 mcg I.V. was administered by Willie Baez RN; for sedation; 15:25:21 Baseline sample Acquired. 15:27:00 Zero performed for pressure channel P1 15:27:21 Procedure started. 15:27:24 Local anesthetic to right femoral artery with Lidocaine 2% by Octavio Fisher MD.INITIAL ACCESS ONLY 15:27:35 A 5 Fr sheath was inserted into the Right Femoral artery 15:27:40 A MULTIPACK Pigtail 5 Fr catheter was advanced over the wire and used for Procedure. 15:27:45 LV gram done using ARGUETA 15:27:54 EF : 50 % 15::57 Injector settings: Ml/sec: 10, Volume: 20, 15:28:01 Catheter exchanged over wire. 15:28:27 A MULTIPACK JL 4.0 5Fr catheter was advanced over the wire and used for Procedure. 15:29:07 LCA angiography performed. 15:30:31 Catheter exchanged over wire. 15:30:37 A MULTIPACK 3DRC 5Fr catheter was advanced over the wire and used for Procedure. 15:30:52 RCA angiography performed. 15:30:54 Catheter removed. 15:31:09 INFLATOR Merit BasixCompak (TT3081) opened to sterile field. 15:31:09 Dudley Verrata Plus pressure wire (44186B) opened to sterile field. 15:31:10 SHEATH 6FR Carlton (EUN401) opened to sterile field. 15:31:12 Sheath upsized to a 6 Fr Short. 15:31:16 GUIDE 6FR XBLAD 3.5 catheter ([id number]) opened to sterile field. 15:31:27 6 Fr xblad 3.5 guide catheter was inserted over the wire 15:33:12 FFR/IFR wire advanced. 15:33:26 Wire advanced across lesion. 15:34:18 pLAD lesion measured at 0.82 with IFR 15:35:23 Heparin Bolus 4000 units I.V. was administered by Willie Baez RN; for anticoagulation; verified with dr fisher 15:35:48 ACC Pre-intervention ERIC Flow is 3. 15:35:53 Pre PCI Site: [place] pLAD has 75% stenosis. 15:36:36 Place stent Inflation Number: 1 A VICENTA RX 3.5 x 26 stent ([id number]) was prepped and advanced across the Prox LAD . The stent was deployed at 17 ERIN for 0:10 (min:sec) . 15:36:53 Stent catheter was removed intact over wire. 15:37:16 Integrilin (Bolus 2mg/ml) 9 ml I.V. was administered by Willie Baez RN; for antiplatelet therapy; wasted 1 ml of vial 15:39:43 Inflate balloon Inflation number: 2 A NC EUPHORA 3.5 x 8 balloon ([id number]) was prepped and advanced across the Prox LAD , then inflated to 23 ERIN for 0:10 (min:sec) . 15:40:39 Balloon removed over the wire. 15:40:46 Post PCI Site: [place] pLAD has 0% stenosis. 15:40:48 ACC Post-intervention ERIC Flow is 3. 15:41:19 Place stent Inflation Number: 3 A VICENTA RX 3.0 x 12 stent ([id number]) was prepped and advanced across the Prox LAD . The stent was deployed at 13 ERIN for 0:10 (min:sec) . 15:41:50 Stent catheter was removed intact over wire. 15:41:51 Wire removed. 15:41:52 Guide catheter removed. 15:41:56 EXOSEAL 6Fr (EX600) opened to sterile field. 15:42:05 Sheath removed intact; hemostasis achieved with Exoseal to the Right Femoral artery. 15:42:30 Procedure ended.(Physican Out) 15:43:46 Fluoroscopy time 04.50 minutes. 15:43:51 Flurop Dose total: 915 15:43:51 Fluoroscopy dose: 915 mGy 15:44:53 ACT drawn and resulted at 399 seconds. (normal therapeutic range 180-240 seconds). 15:45:31 Plavix 600 mg P.O. was administered by Willie Baez RN; for antiplatelet therapy; 15:47:43 Dose Area Product 29862 mGy/cm. 15:48:01 Contrast amount:Isovue 300 115ml. 15:48:34 Maximum allowable dose exceeded? No. 15:48:35 Sharps counted by scrub and verified by R.N. 15:48:36 Insertion/operative site no bleeding no hematoma. 15:50:28 Post-op/insertion site Right Femoral artery dressed using a 4 x 4 and Tegaderm. 15:50:33 Post right femoral artery:stable, soft, clean and dry 15:50:36 Post Procedure Pulses reassessed and unchanged 15:50:38 Post-procedure physical assessment completed. ASA score P 2 - A patient with mild systemic disease as per Octavio Fisher MD. 15:50:41 Post procedure rhythm: unchanged. 15:50:43 Estimated blood loss: 10 ml 15:50:45 Post procedure instruction explained to patient.Patient verbalizes understanding. 15:50:45 Patient needs reinforcement of post procedure teaching. 15:51:08 Procedure type changed to Cath procedure, Diagnostic procedure, LHC, LHC w/Coronaries, Sedation Charges, Moderate Sedation up to 15 minutes, PCI procedure, Coronary Stent, Coronary Stent Initial 15:51:35 Procedure and supply charges have been captured, reviewed, submitted and are correct. 15:51:42 Procedure Complication : No complications 15:51:44 Vital chart was stopped 15:51:44 See physician's report for complete and final results. 15:51:46 Report given to Pre/Post Procedure Room. 15:51:48 Patient transfered to Pre/Post Procedure Room with Stretcher. 15:51:50 Procedure ended. 15:51:50 Full Disclosure recording stopped 15:51:57 ACC-PCI Only Patient was given prescriptions, or instructed by Octavio Fisher MD to start/continue the following medications upon discharge: Aspirin, Plavix 15:51:58 End room use (Document Last) Intervention Summary Intervention Notes Time ActionType Lesion and Equipment Used Action# Pressure Duration Attributes 15:36:36 Place stent Prox LAD VICENTA RX 3.5 x 1 17 00:10 26 stent ([id number]) 15:39:43 Inflate Prox LAD NC EUPHORA 3.5 2 23 00:10 balloon x 8 balloon ([id number]) 15:41:19 Place stent Prox LAD VICENTA RX 3.0 x 3 13 00:10 12 stent ([id number]) Device Usage Item Name Manufacture Quantity Catalog Hospital Part Current Minimal Lot# / Number Charge Number Stock Stock Serial# Code ACIST Syringe Acist 1 32063 028233 096399 478666 20 (58522) Medical Systems Inc Bag Decanter Microtek 1 2001S 961165 11788 758619 5 (2001S) Medical Inc. Medline Cath Medline 1 [id number] 458462 56677 593310 5 Pack ([id number]) ACIST Hand Acist 1 23238 198350 569720 467778 5 Control Medical (35881) Systems Inc ACIST Manifold Acist 1 10537 608783 913328 523179 5 (34173) Medical Systems Inc DIAGNOSTIC Cardinal 1 [id number] 210920 00962 437355 30 Multipack 5Fr Health catheter set (VP8429) Tegaderm 4 x 4 3M 1 1626W 612617 794151 417541 5 (1626W) SHEATH 5FR Terumo 1 VTO881 797912 961663 249770 5 Carlton (ZQR247) EMERALD Guide Cardinal 1 502-455 238688 402394 642635 5 Wire (545-746) Health IV Extension Hospira 1 50781-59 868260 55869 514334 5 Set MULTIPACK Cardinal 1 560588 5 Pigtail 5 Fr Health catheter MULTIPACK JL Cardinal 1 192276 5 4.0 5Fr Health catheter MULTIPACK 3DRC Cardinal 1 272477 5 5Fr catheter Health INFLATOR Merit Merit 1 KB8736 633169 495642 432325 15 [facility] (HT0712) Dudley Dudley 1 43594S 921773 569154635 431718 5 Verrata Plus pressure wire (87557F) SHEATH 6FR Terumo 1 DGP652 320665 474207 584668 40 Carlton (OQE769) GUIDE 6FR Cardinal 1 [id number] 686105 442030 381804 10 XBLAD 3.5 Health catheter (07258793) VICENTA RX 3.5 x Medtronic 1 [id number] 215128 4510392 868274 5 [id number] 26 stent ([id number]) NC EUPHORA 3.5 Medtronic 1 [id number] 663409 664395 613046 1 [id number] x 8 balloon ([id number]) VICENTA RX 3.0 x Medtronic 1 [id number] 681564 3893264 494477 5 [id number] 12 stent ([id number]) EXOSEAL 6Fr Cardinal 1 EX600 734982 091444 776493 10 (EX600) Health Signature Audit Baggs Stage Time Signature Unsigned Intra-Procedure 02/06/2019 Octavio Fisher 3:53:27 PM Intra-Procedure 02/06/2019 Willie Baez RN 3:54:07 PM Intra-Procedure 02/06/2019 Ashutosh Keller 3:54:23 PM RT(R) [facility] [address] [facility] [place] [address]
[~2019-02-06 11:48] MED LIST: ALEVE220 MG PO; ASPIRIN81 MG PO; BETAPACE 80 MG80 MG PO; PLAVIX75 MG PO
[2019-02-06 12:22] LABS: BASOPHILS 0.4 % (0-2); EOSINOPHILS 1.5 % (0-7); HEMATOCRIT 39.9 % (42.0-54.0); HEMOGLOBIN 13.9 g/dL (13.5-17.5); IMMATURE GRANULOCYTES 1.2 % (0-5); LYMPHOCYTES 18.1 % (15-50); MCH 31.3 pg (26.0-34.0); MCHC 34.8 g/dL (31.0-37.0); MCV 89.9 fL (80.0-100.0); MEAN PLATELET VOLUME 10.2 fL (7.4-10.4); MONOCYTES 9.4 % (2-11); NEUTROPHILS 69.4 % (40-80); PLATELET COUNT 274 10x3/uL (130-400); RBC 4.44 10x6/uL (4.20-6.10); RDW 12.8 % (11.5-14.5); WBC 8.1 10x3/uL (4.8-10.8)
[2019-02-06 12:33] LABS: ALBUMIN 3.6 g/dL (3.4-5.0); ALKALINE PHOSPHATASE 72 U/L (46-116); ALT (SGPT) 20 U/L (10-68); BILIRUBIN - TOTAL 0.51 mg/dL (0.2-1.3); CALC OSMOLALITY 294 mosm/kg (275-300); CALCIUM 8.5 mg/dL (8.5-10.1); CARBON DIOXIDE 24.7 mmol/L (21.0-32.0); CHLORIDE - SERUM 110 mmol/L (98-107); CREATININE - SERUM 1.2 mg/dL (0.6-1.3); GLUCOSE 142 mg/dL (74-106); POTASSIUM - SERUM 3.8 mmol/L (3.5-5.1); PROTEIN - SERUM 6.3 g/dL (6.4-8.2); SODIUM 144 mmol/L (136-145); UREA NITROGEN 30 mg/dL (7-18); eGFR NON AFRICAN AMERICAN 63 mL/min (90-120)
[2019-02-06 12:44] LABS: CKMB 1.3 U/L (0.0-3.6); CREATINE KINASE 77 UL (21-232); MAGNESIUM - SERUM 1.9 mg/dL (1.8-2.4); TROPONIN-I < 0.017 ng/mL (0.000-0.060)
[2019-02-06 13:12] LABS: APTT 37.6 SECONDS (22.8-39.4); INR 1.45 (0.85-1.17); PROTIME 17.1 SECONDS (11.6-15.0)
--- NOTE | 2019-02-06 16:05 | NUR ---
PT ARRIVED BY STRETCHER. PLACED ON MONITOR. ASSESSMENT COMPLETED. RIGHT GROIN DRESSING C/D/I. NO S/S OF HEMATOMA NOTED. CALL LIGHT WITHIN REACH. FAMILY AT BEDSIDE. DR. JIMENEZ ROUNDED AND SPOKE WITH PT'S FAMILY. THEY VOICED UNDERSTANDING. IV INFUSING PER MD ORDERS. DENIES PAIN/NAUSEA. HR NSR ON MONITOR. RATE 74.
--- NOTE | 2019-02-06 16:20 | NUR ---
PT RESTING COMFORTABLY. VSS. RIGHT GROIN DRESSING C/D/I. NO S/S OF HEMATOMA NOTED. CALL LIGHT WITHIN REACH.
[2019-02-06] MEDS ORDERED: NAPROSYN500 MG PO (16:36)
[2019-02-06] MEDS ORDERED: FLOMAX0.4 MG PO (16:36)
[2019-02-06] MEDS ORDERED: VITAMIN D31000 UNIT PO (16:36)
[2019-02-06] MEDS ORDERED: BAYER CHEWABLE81 MG PO (16:37)
[2019-02-06] MEDS ORDERED: PROSCAR5 MG PO (16:37)
[2019-02-06] MEDS ORDERED: VITAMIN B-121000 MCG PO (16:37)
[2019-02-06] MEDS ORDERED: LIPITOR80 MG PO (16:38)
[2019-02-06] MEDS ORDERED: COZAAR100 MG PO (16:38)
[2019-02-06] MEDS ORDERED: ELIQUIS5 MG PO (16:39)
[2019-02-06] MEDS ORDERED: TOPROL XL25 MG PO (16:40)
--- NOTE | 2019-02-06 16:44 | NUR ---
PT TRANSPORTED BY BED TO ROOM 2126. FAMILY TO FOLLOW ME DOWN TO ROOM. RIGHT GROIN DRESSING C/D/I. NO S/S OF HEMATOMA NOTED. PT SUPINE POSITION. ON BEDREST UNTIL 1999 TONIGHT. PT'S HAD MEDICATIONS. I UPDATED HIS MEDICATION LIST WITH CORRECT MEDS AND TIMES AND GAVE HIS MEDICATION BOTTLES BACK TO HIS TO TAKE HOME. RIGHT PEDAL PULSE PALPABLE. PT IN NSR. RATE 68. BP 138/76. O2 SAT 98% ON ROOM AIR. RESP 18.
--- NOTE | 2019-02-06 17:04 | NUR ---
RECEIVED PT FROM [facility]. RIGHT FEMORAL CATH SITE IS C/D/I WITH NO S/S OF HEMATOMA PRESENT. VSS AND WNL. PERIPHERAL PULSES BILATERALLY EVEN AND STRONG. PT IS RESTING AT THIS TIME. NO S/S OF DISTRESS NOTED. FAMILY AT BEDSIDE. PT DENIES ANY NEEDS. WILL CTM.
[2019-02-06 17:13] VITALS: BP 149/88; Ht 180.3 cm; Wt 102.3 kg
[2019-02-06 20:15] VITALS: BP 156/94
--- NOTE | 2019-02-06 21:04 | NUR ---
UP WITH ASSIST TO BR.
[2019-02-07 00:02] VITALS: BP 153/73
[2019-02-07 04:00] VITALS: BP 124/56
--- NOTE | 2019-02-07 04:31 | NUR ---
I have reviewed this patient and I concur with the Shift Assessment completed by the Licensed Practical Nurse today this shift.
--- NOTE | 2019-02-07 08:33 | NUR ---
ASSESSMENT DONE. DENIES NEEDS
[2019-02-07 08:45] VITALS: BP 165/79
[2019-02-07] MEDS ORDERED: PLAVIX75 MG PO (09:07)
[2019-02-07] MEDS ORDERED: AMIODARONE HCL200 MG PO (09:08)
--- NOTE | 2019-02-07 10:15 | NUR ---
DC AND RX GIVEN TO PT
--- NOTE | 2019-02-07 10:31 | NUR ---
DC GIVEN TO PT
--- NOTE | 2019-02-07 10:40 | NUR ---
DC HOME PER PERSONAL CAR
--- NOTE | 2019-02-08 09:14 | CN ---
PATIENT NAME:MIGUEL HUBBARD MEDICAL RECORD: [id number] : 46 LOCATION:D.CAT ADMIT DATE: ACCOUNT: [id number] CONSULTING PHYSICIAN: TYRA JIMENEZ MD REFERRING PHYSICIAN: TYRA JIMENEZ MD DATE OF CONSULTATION: 02/06/2019 DIAGNOSES: 1. Unstable angina. 2. Abnormal ECG. 3. Supraventricular tachycardia. 4. Shortness of breath, dyspnea on exertion. 5. Coronary artery disease. 6. Previous percutaneous transluminal coronary angioplasty stent. 7. Hypertension. 8. Hyperlipidemia. HISTORY OF PRESENT ILLNESS: Mr. Hubbard began having chest discomfort and chest tightness last night just like that of his previous angina. His last cardiac intervention was 04/2017. He then felt palpitations, his chest pain worsened, he presents to the Emergency Room. He was found to be in a supraventricular tachycardia at a rate of 150 versus 2:1 atrial flutter. He was given adenosine. He converted to sinus rhythm. His EKG with the tachycardia did have [address] depression in the lateral and inferior leads. After converting to sinus rhythm; however, he does continue to have the chest discomfort. His heart rate is now in the 70s. Systolic blood pressure is in the 110 range. At home, he is on metoprolol, losartan for blood pressure, he is on atorvastatin for hyperlipidemia. PHYSICAL EXAMINATION: CONSTITUTIONAL/GENERAL APPEARANCE: Well nourished, well developed, appears stated age. EYES: Lids and conjunctivae noninjected. No discharge. No pallor. ENT: Lips within normal limit. No cyanosis. No pallor. NECK: Carotid arteries, bilateral normal upstroke. No bruits. No thrills. No jugular venous pressure or distention. CERVICAL LYMPH NODES: Nontender. Nonenlarged. THYROID: Not enlarged. No nodules. CARDIOVASCULAR: Precordial exam, nondisplaced. No heaves or pericardial thrills. Rate and rhythm, regular. Heart sounds, normal S1, normal S2. No S3, no gallop, no rub. Systolic murmur, not heard. Diastolic murmur, not heard. RESPIRATORY: Respiratory effort, unlabored. Normal curvature. No thoracic deformity. No chest wall tenderness. Percussion, resonant. Auscultation, clear. No wheezes, no rales, no rhonchi. ABDOMEN: Soft, nondistended, nontender. No abdominal pain, no vomiting and normal appetite. MUSCULOSKELETAL: No joint tenderness, normal gait, normal tone. SKIN: Warm and dry. OVERALL IMPRESSION: Unstable anginal symptomatology leading to cardiac dysrhythmia, supraventricular tachycardia with worsening chest pain and EKG changes in a patient with a past history of hypertension, hyperlipidemia, and premature coronary artery disease as well as having coronary artery disease himself. Most likely he does have hemodynamically significant coronary artery disease, now had all resolved with resolution of the supraventricular CONSULT REPORT [id number] MIGUEL HUBBARD tachycardia. The EKG changes as well resolved. He basically failed a stress test by doing this. Most likely he does have recurrent hemodynamically significant coronary artery disease. We discussed the options with him about proceeding with coronary angiography. TRANSINT:[id number] Voice Confirmation ID: [id number] DOCUMENT ID: [id number] TYRA JIMENEZ MD at 0914 CC: [id number] DICTATION DATE: 02/06/19 1230 QUALITY CONTROL: 02/06/19 1346 DEP CLI 02/07/19 [facility] [address] [place] [address]
--- NOTE | 2019-02-08 09:14 | DS ---
PATIENT:MIGUEL HUBBARD :46 MEDICAL RECORD: [id number] DISCHARGE SUMMARY ADMISSION DATE: 02/06/19 DISCHARGE DATE: 02/07/19 DISCHARGE DIAGNOSES: 1. Unstable angina. 2. Percutaneous transluminal coronary angioplasty and stent to the left anterior descending this admission. 3. Supraventricular tachycardia. 4. Hypertension. 5. Hyperlipidemia. HOSPITAL COURSE: Mr. Hubbard presents with unstable anginal symptomatology and episodes of supraventricular tachycardia, found to have significant disease of the LAD, underwent successful PTCA and stent of the LAD, started on Cordarone, had no further angina, no further supraventricular tachycardia. Will follow up with [facility] in 1 month. TRANSINT:[id number] Voice Confirmation ID: [id number] DOCUMENT ID: [id number] TYRA JIMENEZ MD at 0914 CC: [id number] DICTATION DATE: 02/07/19 0848 [employer]PERVISOR SHIPPING ROOM: 02/08/19 0529 DEP CLI 02/07/19 [facility] [id number] [place] [address]
--- NOTE | 2019-02-08 09:14 | OP ---
PATIENT NAME: MIGUEL HUBBARD MEDICAL RECORD: [id number] :46 LOCATION:D.CAT ADMISSION DATE: SURGEON: TYRA JIMENEZ MD DATE OF OPERATION: 02/06/2019 PROCEDURES: 1. PTCA and stent to the LAD. 2. IFR. 3. Left heart catheterization. 4. Selective coronary angiography. 5. Left ventriculogram. INDICATIONS: Angina, dysrhythmia-supraventricular tachycardia, coronary artery disease. PROCEDURE IN DETAIL: After informed consent was obtained and after a detailed description of the risks, benefits as well as alternative therapies, the patient elected to proceed with angiogram and angioplasty. The right femoral area was prepped and draped in normal sterile fashion. Right femoral artery was cannulated via modified Seldinger technique with placement of 6-[place] sheath. All catheters exchanged through this sheath. FINDINGS: Left ventriculogram was performed in standard 30-degree ARGUETA view, reveals good cardiac wall motion, ejection fraction is 60%. SELECTIVE CORONARY ANGIOGRAPHY: 1. Left main is with no significant angiographic disease. 2. Left anterior descending has previously placed stent proximally. There is 80% in-stent restenosis and IFR is abnormal at 0.82. 3. Left circumflex has moderate irregularities but no flow-limiting stenosis. 4. Right coronary has moderate irregularities but no flow-limiting stenosis. PTCA AND STENT OF THE LAD: The stent used was a 3.5 x 26 mm [place] followed by a 3.0 x 12 mm [place]. Result was 0% residual stenosis. OVERALL IMPRESSION: Successful stent placement of the left anterior descending going from 75% to 80% initial stenosis to 0% residual. TRANSINT:[id number] Voice Confirmation ID: [id number] DOCUMENT ID: [id number] TYRA JIMENEZ MD at 0914 CC: [id number] DICTATION DATE: 02/06/19 1551 TENTER: 02/07/19 0101 [facility] CLI 02/07/[address] [address]
== END 2019-02-07 10:41 | disposition home or self-care (01) ==
LOC: D.ER 11:48 → D.CATH 11:48 → EDSTATUS 13:30 → D.CLR 16:00 → D.M2 16:43 → D.CATH 02-07 10:41
PROVIDERS: Family Medicine; ATTEND Internal Medicine Interventional Cardiology
DX: I25.119 Atherosclerotic heart disease of native coronary artery with unspecified angina pectoris (principal); I47.1 Supraventricular tachycardia